=== PATIENT | female | born 1975 | race Asian ===

== ENCOUNTER 2018-01-01 11:35 | Emergency (ER) | payer SELFPAY ==
[~2018-01-01] VITALS: Ht 162.6 cm; Wt 68.0 kg
[2018-01-01 12:00] VITALS: BP 96/63
[2018-01-01 12:15] LABS: BASOPHILS % (AUTO) 1.4 % (0.0-2.0); EOSINOPHILS % (AUTO) 4.9 % (0.0-3.0); HEMATOCRIT 41.3 % (37.0-47.0); HEMOGLOBIN 13.5 G/DL (12.0-16.0); LYMPHOCYTES % (AUTO) 25.3 % (20.0-45.0); MEAN CORPUSCULAR VOLUME 87 FL (80-99); MONOCYTES % (AUTO) 6.3 % (1.0-10.0); NEUTROPHILS % (AUTO) 62.2 % (45.0-75.0); PLATELET COUNT 387 K/UL (150-450); RED BLOOD COUNT 4.73 M/UL (4.20-5.40); RED CELL DISTRIBUTION WIDTH 11.9 % (11.6-14.8); WHITE BLOOD COUNT 6.8 K/UL (4.8-10.8)
[2018-01-01 12:30] LABS: ANION GAP 4 mmol/L (5-15); BLOOD UREA NITROGEN 16 mg/dL (7-18); CALCIUM 8.4 MG/DL (8.5-10.1); CARBON DIOXIDE 30 MMOL/L (21-32); CHLORIDE 106 MMOL/L (98-107); CREATININE 0.8 MG/DL (0.55-1.30); POTASSIUM 4.1 MMOL/L (3.5-5.1); SODIUM 140 MMOL/L (136-145)
[2018-01-01 12:34] LABS: ALANINE AMINOTRANSFERASE 31 U/L (12-78); ALBUMIN 3.3 G/DL (3.4-5.0); ALBUMIN/GLOBULIN RATIO 0.8 (1.0-2.7); ALKALINE PHOSPHATASE 64 U/L (46-116); ASPARTATE AMINO TRANSFERASE 24 U/L (15-37); BILIRUBIN,TOTAL 0.3 MG/DL (0.2-1.0)
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
[2018-01-01] MEDS ORDERED: LORazepam 1mg tab ORAL ONE (14:45)
[2018-01-01 17:26] VITALS: BP 110/72
[2018-01-02] VITALS (7 sets, daily range): BP systolic 95–115; BP diastolic 53–76
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
== END 2018-01-02 16:57 | disposition home or self-care (01) ==
LOC: EDBD 11:35 → EMR 12:21
DX: T42.4X2A Poisoning by benzodiazepines, intentional self-harm, initial encounter (principal); F32.9 Major depressive disorder, single episode, unspecified; Y92.89 Other specified places as the place of occurrence of the external cause; Z88.0 Allergy status to penicillin; F31.9 Bipolar disorder, unspecified
CPT/HCPCS: 36415; 80053; 80307; 84703; 85025; 99284; G0480; 80329